=== PATIENT | female | born 1955 | race Caucasian/White ===

== ENCOUNTER 2018-01-16 06:29 | Day surgery (SDC) | payer OTHER ==
[2018-01-14 15:54] VITALS: BMI 41.1
[2018-01-16] MEDS ORDERED: THROMBIN (BOVINE) 5,000 UNIT VIAL TP ONE (07:28)
[2018-01-16] MEDS ORDERED: GELATIN, ABSORBABLE 100 EACH SPONGE TP ONE (07:28)
[2018-01-16] MEDS ORDERED: fentaNYL CITRATE 250 MCG/5 ML VIAL ONE ×2 (07:47→09:42)
[2018-01-16] MEDS ORDERED: SUCCINYLCHOLINE CHLORIDE 200 MG/10 ML VIAL ONE (07:48)
[2018-01-16] MEDS ORDERED: ROCURONIUM BROMIDE 50 MG/5 ML VIAL ONE ×2 (07:48→09:42)
[2018-01-16] MEDS ORDERED: MIDAZOLAM HCL 2 MG/2 ML SINGLE DOSE VIAL ONE (07:48)
[2018-01-16] MEDS ORDERED: PROPOFOL 20 ML ONE ×4 (07:48)
[2018-01-16] MEDS ORDERED: ONDANSETRON 4 MG/2 ML VIAL ONE (08:34)
[2018-01-16] MEDS ORDERED: DEXAMETHASONE SOD PHOSPHATE 4 MG/1 ML VIAL ONE (08:34)
[2018-01-16] MEDS ORDERED: ceFAZolin SODIUM 1 GM VIAL ONE (08:34)
[2018-01-16] MEDS ORDERED: LIDOCAINE HCL/PF 2% SDV 5ML VIAL ONE (08:34)
[2018-01-16] MEDS ORDERED: ePHEDrine SULFATE 50 MG/1 ML AMPULE ONE (08:34)
[2018-01-16] MEDS ORDERED: DESFLURANE GAS 240 ML BOTTLE IH ONE (08:36)
[2018-01-16] MEDS ORDERED: oxyCODONE HCL 5 MG TABLET PO PRN ×2 (11:02)
[2018-01-16] MEDS ORDERED: ACETAMINOPHEN 1000 MG/100 ML VIAL (NON FORMULARY) IVPB PRN (11:02)
[2018-01-16] MEDS ORDERED: ONDANSETRON 4 MG/2 ML VIAL IVPUSH PRN ×2 (11:02→11:43)
[2018-01-16] MEDS ORDERED: HYDROmorphone HCL CARPU-JECT 2 MG/1 ML DISP.SYRIN IVPB PRN (11:07)
[2018-01-16] MEDS ORDERED: PROMETHAZINE HCL 25 MG/1 ML VIAL ONE (11:33)
[2018-01-16] MEDS ORDERED: PROMETHAZINE HCL 25 MG/1 ML VIAL IVPUSH ONE (11:35)
--- NOTE | 2018-01-16 11:37 | OP ---
Operative Note - Note: Operative Date: 01/16/18 Pre-Operative Diagnosis: L5-S1 HNP Operation: Left L5-S1 lumbar microdiscectomy Post-Operative Diagnosis: Same as Pre-op Surgeon: Abhishek Christopher Speech Pathology Supervisor: Farideh Montalvo Anesthesiologist/METAL CEILING BUILDER: Geovanni Patricio Anesthesia: General Specimens Removed: Left L5-S1 disc herniation/fragment Estimated Blood Loss (mls): 50 Fluid Volume Replaced (mls): 1,000 Operative Report Dictated: Yes
--- NOTE | 2018-01-16 11:38 | SURG ---
Surgery Photonics Technician Note Photonics Technician: Farideh Montalvo PA-C Date of Service: 01/16/18 Diagnosis: L5-S1 HNP Procedure: Left L5-S1 lumbar microdiscectomy I was present for the entirety of the operative procedure. For further detail, please refer to operative report. Visit type - Case Type Case Type: Scheduled - Emergency Emergency Visit: No - New patient This patient is new to me today: Yes Date on this admission: 01/16/18
[2018-01-16] MEDS ORDERED: PROMETHAZINE HCL 25 MG/1 ML VIAL IVPUSH PRN (11:43)
[2018-01-16] MEDS ORDERED: ACETAMINOPHEN 325 MG TABLET (FP) PO ONE (12:24)
[2018-01-16] MEDS: LACTATED RINGERS SOLUTION 1,000 ML IV SCH (13:00)
--- NOTE | 2018-01-16 13:01 | OP ---
DATE OF OPERATION: 01/16/2018 PREOPERATIVE DIAGNOSIS: 1. Left lower extremity lumbar radiculopathy. 2. Intervertebral disc displacement, lumbar spine. POSTOPERATIVE DIAGNOSIS: 1. Left lower extremity lumbar radiculopathy. 2. Intervertebral disc displacement, lumbar spine. PROCEDURE PERFORMED: 1. Left microlumbar discectomy at L5-S1 2. Repair of incidental durotomy. SURGEON: Abhishek Christopher MD SIX PACK LOADER OPERATOR: PJ Noble ANESTHESIA: General. INDICATIONS: The patient is a 62-year-old female with persistent severe radicular left leg pain, which has been bothering her now for over 4 months. The pain was treated with chiropractor treatment, oral medications, and 2 epidural steroid injections without significant long-lasting relief. She continues with severe pain. She has needed a rolling walker to get around since the injury. She is indicated for decompressive surgery. Risks, benefits, and alternatives of the surgery were discussed in detail with the patient, and informed consent was obtained. DESCRIPTION OF THE PROCEDURE: The patient was brought into the operating room via stretcher, and general endotracheal anesthesia was administered by the anesthesiologist. The patient was then flipped into the prone position onto the padded Raghavendra frame. All bony prominences were padded, and the back was then prepped and draped in the usual sterile fashion. A time-out was performed, and prophylactic IV antibiotics were administered. A localizing fluoroscopic radiograph was taken, and appropriate incision was made at the midline. Dissection was carried down to the fascia, and the fascia was split on the left side exposing the L5 lamina. A deep retractor was placed, and a deep localizing x-ray was taken. A hemilaminotomy of the left L5 lamina was performed with partial medial facetectomy and foraminotomy. The ligamentum flavum was exposed, and then, the microscope was then brought in. Under microscopic magnification, the ligamentum flavum was excised. The traversing nerve root, S1 root was well identified. During dissection of the root, the patient sustained an incidental durotomy at the lateral edge of the thecal sac. This was packed and protected, and the disc herniation was well localized and excised completely yielding excellent decompression at the left S1 root and lateral recess. After removal of the packing, there was noted to be no active CSF leak. The wound was then copiously irrigated. A fat graft was then cut and placed on the area of the laminotomy defect. This defect area was also filled with DuraGen fibrin glue. Throughout this process which lasted approximately 15 minutes, no active CSF leak was identified. Excellent hemostasis was achieved. The fascia was closed with No. 1 Vicryl suture. The deep dermal tissue was approximated with 2-0 Vicryl suture. The skin was closed with combination of vertical mattress sutures using 0 Prolene and a running 2-0 nylon suture. A sterile dressing was applied. The plan for the patient is to keep her at bed rest overnight and follow her clinical exam. I will plan to get her out of bed tomorrow, and if the patient is clinically doing well without evidence of active CSF leak, my plan is to send her home with close followup in a week. Farideh Montalvo RPA-[place], was necessary throughout the case to properly assist in the retraction of other elements and excision of the herniated disc. This could not have been done without a skilled business office assistant. Dell [id number]
[2018-01-16] MEDS: ACETAMINOPHEN 325 MG TABLET (FP) PO SCH ×2 (14:49→18:32)
[2018-01-16] MEDS: GABAPENTIN 300 MG CAPSULE (FP) PO SCH ×2 (14:52→21:28)
--- NOTE | 2018-01-16 16:30 | PN ---
Progress Note (short form) - Note Progress Note: post op check doing ok denies headache denies severe pain motor intact b/l LE wound dressing clean POD s/p MLD complicated by small lateral durotomy -bedrest flat overnight -PT/OOB tomorrow -will d/c tomorrow if doing well without evidence of active CSF leak
[2018-01-16] MEDS: CEFAZOLIN 1 GM/D5W 1 GM/50 ML BAG IVPB SCH (17:04)
[2018-01-16] MEDS: NICOTINE 21 MG/24 HOURS TOPICAL PATCH TD SCH (18:32)
[2018-01-16] MEDS: DOCUSATE SODIUM 100 MG CAPSULE (FP) PO SCH (21:28)
[2018-01-17] MEDS: ACETAMINOPHEN 325 MG TABLET (FP) PO SCH ×3 (00:49→13:52)
[2018-01-17] MEDS: CEFAZOLIN 1 GM/D5W 1 GM/50 ML BAG IVPB SCH (00:49)
[2018-01-17] MEDS: GABAPENTIN 300 MG CAPSULE (FP) PO SCH ×2 (05:57→13:51)
[2018-01-17 08:15] LABS: BLOOD UREA NITROGEN 13 mg/dl (7-18); CHLORIDE 103 mmol/L (98-107); CO2 26 mmol/L (22-28); CREATININE 0.7 mg/dl (0.6-1.3); GLUCOSE,RANDOM 103 mg/dl (74-106); POTASSIUM 3.9 mmol/L (3.5-5.1); SODIUM 139 mmol/L (136-145)
[2018-01-17 08:16] LABS: ANION GAP 10 MMOL/L (8-16)
[2018-01-17 08:19] LABS: HEMATOCRIT 44.2 % (32.4-45.2); HEMOGLOBIN 14.2 GM/dl (10.7-15.3); MCH 29.2 pg (25.7-33.7); MCHC 32.2 g/dl (32.0-36.0); MEAN CELL VOLUME 90.9 fl (80-96); MEAN PLT VOLUME 8.1 fl (7.5-11.1); PLATELET COUNT 243 K/MM3 (134-434); RBC 4.86 M/mm3 (3.60-5.2); RDW 13.3 % (11.6-15.6); WHITE BLOOD COUNT 16.4 K/mm3 (4.0-10.8)
[2018-01-17] MEDS: DOCUSATE SODIUM 100 MG CAPSULE (FP) PO SCH (09:39)
[2018-01-17] MEDS: NICOTINE 21 MG/24 HOURS TOPICAL PATCH TD SCH (09:39)
[2018-01-17 10:15] VITALS: BP 168/58; PULSE 84; TEMP 98.9
[2018-01-17] MEDS: LACTATED RINGERS SOLUTION 1,000 ML IV SCH (13:52)
--- NOTE | 2018-01-17 14:52 | PATH ---
Surgical Pathology Report Patient Name: CHERI VO Med. Rec. #: [id number] /Age/Gender: 1955 (Age: 62) / F Account: [id number] Location: [facility] MED-SURG Taken: 01/16/2018 Received: 01/16/2018 Reported: 01/17/2018 Physicians: Abhishek Christopher M.D. Specimen(s) Received L5-S1 DISC Clinical History Lumbar radiculopathy Final Diagnosis DISC, L5-S1, DISCECTOMY: BENIGN INTERVERTEBRAL DISC TISSUE. Electronically Signed Barbara Malcolm M.D. Gross Description Received in formalin labeled "left L5-S1 disc," is a 1.5 x 1.3 x 0.3 cm aggregate of nascimento fragments of fibrocartilaginous tissue. The formalin is filtered and the specimen is entirely submitted in one cassette. /01/16/2018 saudi01/16/2018
== END 2018-01-17 14:05 | disposition home or self-care (01) ==
LOC: FASU 06:29 → FASUSAT 06:29 → FM/S 13:35 → FASUSAT 01-17 14:05
PROVIDERS: ATTEND Orthopaedic Surgery Orthopaedic Surgery of the Spine
PROC: 01NB0ZZ Release Lumbar Nerve, Open Approach (ICD-10-PCS; principal; 2018-01-16 08:45)
DX: M51.27 Other intervertebral disc displacement, lumbosacral region (principal); M54.17 Radiculopathy, lumbosacral region
CPT/HCPCS: 36415; 80048; 85027; 88304-TC; 94760; 97116-GP; 97161-GP